=== PATIENT | male | born 1995 | race Caucasian/White ===

== ENCOUNTER 2017-05-12 07:03 | Emergency (ER) | payer OTHER ==
[~2017-05-12] VITALS: Ht 157.5 cm; Wt 123.7 kg
[~2017-05-12 07:03] MED LIST: LANTUS 3 M100 UNITS1 SC; ZOFRAN ODT8 MG PO; glimepiride; metformin; omeprazole
[2017-05-12 07:35] LABS: POINT-OF-CARE METER ID UU13113702
[2017-05-12 08:00] LABS: HEMATOCRIT 48.3 % (38.0-50.0); MCH 29.2 PG (29.0-34.0); MCHC 36.4 G/DL (30.0-36.0); MCV 80.1 FL (86-99); MEAN PLAT.VOLUME 11.4 uM^3 (9.0-12.4); PLATELET COUNT 234 K/uL (156-360); RBC DIS.WIDTH-CV 12.5 % (11.8-14.6); RBC DIS.WIDTH-SD 36.2 % (39-53); RED BLOOD COUNT 6.03 M/uL (4.00-5.50); WHITE BLOOD COUNT 12.3 K/uL (4.1-10.2)
[2017-05-12 08:01] LABS: CARBON DIOXIDE (BICARBONATE) 24.9 MEQ/L (20-31)
[2017-05-12 08:35] LABS: POINT-OF-CARE METER ID UU13113702
[2017-05-12 08:38] LABS: ALKALINE PHOSPHATASE 58 IU/L (3-129); ANION GAP 11 MEQ/L (2-14); CHLORIDE 94 MEQ/L (99-109); GFR ESTIMATE (CALCULATED) > 59 mL/min/; GLUCOSE 397 mg/dL (70-99); POTASSIUM 4.3 MEQ/L (3.7-5.4); SAMPLE HEMOLYSIS CHECK 2; SAMPLE ICTERIC CHECK 0; SAMPLE LIPEMIA CHECK 0; SODIUM 131 MEQ/L (136-147); TOTAL BILIRUBIN 0.9 MG/DL (0.0-1.0); UREA NITROGEN (BUN) 13 mg/dL (9-23)
[2017-05-12 10:21] LABS: ADD MIUA? NO; BILIRUBIN NEGATIVE; BLOOD NEGATIVE; COLOR COLORLESS ((YELLOW)); GLUCOSE (STRIP) >=500; KETONES NEGATIVE; LEUKOCYTES NEGATIVE; NITRITE NEGATIVE; PROTEIN (STRIP) NEGATIVE; SPECIFIC GRAVITY 1.001 (1.000-1.030); UCUL ADDED? NO; UROBILINOGEN 0.2 MG/DL (0.2-1.0)
[2017-05-12 10:51] LABS: POINT-OF-CARE METER ID UU13113702
[2017-05-12] MEDS ORDERED: ATARAX,VISTARIL25 MG PO (10:53)
[2017-05-12 11:35] LABS: POINT-OF-CARE METER ID UU13113702
[2017-05-12 12:14] VITALS: BP 134/84
== END 2017-05-12 12:15 | disposition home or self-care (01) ==
LOC: EME 07:03
PROVIDERS: Nurse Practitioner Family
DX: E11.65 Type 2 diabetes mellitus with hyperglycemia (principal); F41.1 Generalized anxiety disorder; F43.9 Reaction to severe stress, unspecified; Z91.19 Patient's noncompliance with other medical treatment and regimen; Z79.84 Long term (current) use of oral hypoglycemic drugs; Z79.4 Long term (current) use of insulin; K21.9 Gastro-esophageal reflux disease without esophagitis; J45.909 Unspecified asthma, uncomplicated; Z88.5 Allergy status to narcotic agent; Z88.0 Allergy status to penicillin
CPT/HCPCS: 80053; 81003; 82803; 82948; 85027; 90839; 99281; 99284; J1630; J2250; J2405; J7030